=== PATIENT | female | born 1965 | race Caucasian/White ===

== ENCOUNTER 2017-07-06 09:05 | Emergency (ER) | payer OTHER ==
[~2017-07-06] VITALS: Ht 149.9 cm; Wt 51.7 kg
[2017-07-06 09:16] VITALS: Ht 149.9 cm; Wt 51.7 kg
[2017-07-06 10:54] VITALS: BP 115/60
== END 2017-07-06 11:06 | disposition home or self-care (01) ==
LOC: ED 09:05
DX: K52.9 Noninfective gastroenteritis and colitis, unspecified (principal); E78.00 Pure hypercholesterolemia, unspecified
CPT/HCPCS: Q0162

== ENCOUNTER 2017-07-07 17:44 | Emergency (ER) | payer OTHER ==
[~2017-07-07] VITALS: Ht 149.9 cm; Wt 52.2 kg
[2017-07-07 18:32] VITALS: Ht 149.9 cm; Wt 52.2 kg
[2017-07-07 21:59] VITALS: BP 101/55
== END 2017-07-07 22:27 | disposition home or self-care (01) ==
LOC: ED 17:44
DX: R10.30 Lower abdominal pain, unspecified (principal); R19.7 Diarrhea, unspecified; R11.2 Nausea with vomiting, unspecified
CPT/HCPCS: J1885

== ENCOUNTER 2019-02-05 06:31 | Emergency (ER) | payer OTHER ==
[~2019-02-05] VITALS: Ht 149.9 cm; Wt 51.3 kg
[2019-02-05 10:51] VITALS: BP 104/62
== END 2019-02-05 10:51 | disposition home or self-care (01) ==
LOC: ED 06:31
DX: R42 Dizziness and giddiness (principal); Z90.49 Acquired absence of other specified parts of digestive tract; Z90.710 Acquired absence of both cervix and uterus
CPT/HCPCS: J8597